=== PATIENT | female | born 1950 | race Caucasian/White ===

== ENCOUNTER → 2017-04-04 | Outpatient (CLI) | payer OTHER, BC | LOC: RAD 03:04 | DX: Z12.31 Encounter for screening mammogram for malignant neoplasm of breast (principal); Z13.820 Encounter for screening for osteoporosis; M85.89 Other specified disorders of bone density and structure, multiple sites; E28.39 Other primary ovarian failure ==

== ENCOUNTER 2018-02-28 09:54 | Emergency (ER) | payer OTHER, BC ==
[~2018-02-28] VITALS: Ht 162.6 cm; Wt 105.7 kg
--- NOTE | ~2018-02-28 | EKG ---
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1950 Requested By: Bella Figueroa Order Number: [id number] MD: Gera Villavicencio Measurements Intervals [place] Rate: 77 P: 40 [place]: 146 QRS: -24 QRSD: 98 T: -8 QT: 431 QTc: 488 Interpretive Statements Sinus rhythm Borderline left axis deviation Borderline T abnormalities, diffuse leads Borderline prolonged QT interval Compared to ECG 07/17/1999 06:17:16 No significant changes Electronically Signed On 03-01-2018 11:02:22 CDT by Gera Villavicencio [email or web address] <ELECTRONICALLY SIGNED> By: Gera Villavicencio MD 03/01/18 1102 1045 45 Gera Villavicencio MD /HAKEEM
[2018-02-28 10:30] LABS: URINE BILIRUBIN NEGATIVE (Negative); URINE BLOOD NEGATIVE (Negative); URINE CLARITY CLOUDY; URINE COLOR YELLOW; URINE GLUCOSE-RANDOM* NEGATIVE (Negative); URINE KETONES NEGATIVE (Negative); URINE NITRITE-REFLEX NEGATIVE (Negative); URINE PROTEIN (DIPSTICK) NEGATIVE (Negative); URINE UROBILINOGEN 0.2 E.U./dl (0.2-1.0)
[2018-02-28 10:31] LABS: URINE LEUKOCYTES-REFLEX TRACE (Negative)
[2018-02-28] MEDS ORDERED: SYNTHROID100 MC1 PO (10:35)
[2018-02-28] MEDS ORDERED: PAXIL10 MG PO (10:35)
[2018-02-28] MEDS ORDERED: LASIX 40 MG TAB40 M2 PO (10:36)
[2018-02-28] MEDS ORDERED: AMITRIPTYLINE H75 M2 PO (10:36)
[2018-02-28] MEDS ORDERED: LYRICA 75 MG CA75 MG PO (10:36)
[2018-02-28] MEDS ORDERED: QUINAPRIL 20 MG20 MG PO (10:36)
[2018-02-28] MEDS ORDERED: KLOR-CON 1010 MEQ PO (10:36)
[2018-02-28] MEDS ORDERED: ALLOPURINOL 10100 M1 PO (10:36)
[2018-02-28] MEDS ORDERED: FLEXERIL PO (10:37)
[2018-02-28] MEDS ORDERED: VICODIN 5-3001 EACH PO (10:37)
[2018-02-28] MEDS ORDERED: MULTIPLE VITAM1 EAC2 PO (10:38)
[2018-02-28] MEDS ORDERED: ASPIR 8181 M1 PO (10:38)
[2018-02-28] MEDS ORDERED: FISH OIL 1,001000 M2 PO (10:38)
[2018-02-28] MEDS ORDERED: XALATAN2.5 ML OPHTHALMIC (10:38)
[2018-02-28 10:40] LABS: ABSOLUTE NEUTROPHILS 2.5 thou/uL (1.4-8.2); BASOPHILS 0.5 % (0.0-2.0); EOSINOPHILS 8.9 % (0.0-3.0); HEMATOCRIT 43.7 % (37.0-47.0); HEMOGLOBIN 14.9 gm/dL (12.0-15.0); LYMPHOCYTES 41.5 % (24.0-44.0); MCH 32.4 pg (26.0-34.0); MCHC 34.2 g/dL (28.0-37.0); MCV 94.8 fL (80.0-100.0); MONOCYTES 7.9 % (1.0-8.0); PLATELET COUNT 147 thou/uL (150-400); POLYS 41.2 % (36.0-66.0); RBC 4.61 mil/uL (4.20-5.00); RDW 13.6 % (10.5-14.5); WBC 6.2 thou/uL (4.0-11.0)
[2018-02-28 10:54] LABS: ALBUMIN 3.5 g/dL (3.4-5.0); CALCIUM 9.5 mg/dL (8.5-10.1); CREATININE 1.1 mg/dL (0.6-1.0); TOTAL BILIRUBIN 0.5 mg/dL (<0.1-1.0); TOTAL PROTEIN 8.2 g/dL (6.4-8.2)
[2018-02-28 13:00] VITALS: BP 143/70
== END 2018-02-28 13:05 | disposition home or self-care (01) ==
LOC: ER 09:54
PROVIDERS: Student in an Organized Health Care Education/Training Program
DX: R53.1 Weakness (principal); E03.9 Hypothyroidism, unspecified; I11.0 Hypertensive heart disease with heart failure; I50.9 Heart failure, unspecified; M79.7 Fibromyalgia; Z88.0 Allergy status to penicillin; Z88.1 Allergy status to other antibiotic agents; Z88.5 Allergy status to narcotic agent; Z88.6 Allergy status to analgesic agent

== ENCOUNTER → 2018-06-02 | Outpatient (CLI) | payer OTHER, BC ==
[~2018-06-02] MED LIST: ALLOPURINOL 10100 M1 PO; AMITRIPTYLINE H75 M2 PO; ASPIR 8181 M1 PO; FISH OIL 1,001000 M2 PO; FLEXERIL PO; KLOR-CON 1010 MEQ PO; LASIX 40 MG TAB40 M2 PO; LYRICA 75 MG CA75 MG PO; MULTIPLE VITAM1 EAC2 PO; PAXIL10 MG PO; QUINAPRIL 20 MG20 MG PO; SYNTHROID100 MC1 PO; VICODIN 5-3001 EACH PO; XALATAN2.5 ML OPHTHALMIC
== END ==
LOC: RAD 02:03
DX: Z12.31 Encounter for screening mammogram for malignant neoplasm of breast (principal)

== ENCOUNTER 2019-03-19 17:11 | Emergency (ER) | payer OTHER, BC ==
[~2019-03-19] VITALS: Ht 162.6 cm; Wt 93.9 kg
[2019-03-19 18:15] LABS: ABSOLUTE NEUTROPHILS 2.2 thou/uL (1.4-8.2); BASOPHILS 0.3 % (0.0-2.0); EOSINOPHILS 8.1 % (0.0-3.0); HEMATOCRIT 42.2 % (37.0-47.0); HEMOGLOBIN 14.3 gm/dL (12.0-15.0); MCH 32.4 pg (26.0-34.0); MCHC 33.9 g/dL (28.0-37.0); MCV 95.6 fL (80.0-100.0); MONOCYTES 8.3 % (1.0-8.0); PLATELET COUNT 144 thou/uL (150-400); POLYS 36.3 % (36.0-66.0); RBC 4.41 mil/uL (4.20-5.00); RDW 13.2 % (10.5-14.5); WBC 6.2 thou/uL (4.0-11.0)
[2019-03-19 18:20] LABS: ANION GAP 3 mmol/L (7-16); BUN 19 mg/dL (7-18); CHLORIDE 101 mmol/L (98-107); CO2 35 mmol/L (21-32); CREATININE 0.9 mg/dL (0.6-1.0); GLUCOSE 128 mg/dL (74-106); POTASSIUM 4.3 mmol/L (3.5-5.1); SODIUM 139 mmol/L (136-145)
[2019-03-19 18:31] LABS: ALBUMIN 3.9 g/dL (3.4-5.0); MAGNESIUM 1.9 mg/dL (1.8-2.4); SGOT 61 U/L (15-37); SGPT 62 U/L (30-65); TOTAL BILIRUBIN 0.5 mg/dL (<0.1-1.0); TOTAL PROTEIN 7.7 g/dL (6.4-8.2); TROPONIN-I <0.06 ng/mL (<0.06)
[2019-03-19 19:21] LABS: URINE BILIRUBIN NEGATIVE (Negative); URINE BLOOD NEGATIVE (Negative); URINE CLARITY CLEAR; URINE COLOR YELLOW; URINE GLUCOSE-RANDOM* NEGATIVE (Negative); URINE KETONES NEGATIVE (Negative); URINE NITRITE-REFLEX NEGATIVE (Negative); URINE PROTEIN (DIPSTICK) NEGATIVE (Negative); URINE SPECIFIC GRAVITY <= 1.005 (1.005-1.035); URINE UROBILINOGEN 0.2 E.U./dl (0.2-1.0)
[2019-03-19 19:22] LABS: URINE LEUKOCYTES-REFLEX 1+ (Negative)
[2019-03-19 19:36] LABS: AMORPHOUS PHOSPHATES Moderate /LPF (None Seen); BACTERIA-REFLEX 1-9 Few /HPF (None Seen); CASTS None Seen /LPF (None Seen); SQUAMOUS 0-3 Few /LPF (0-3); URINE RBC None Seen /HPF (0-2); URINE WBC-REFLEX 0-5 Rare /HPF (0-5)
[2019-03-19 20:52] VITALS: BP 126/65
--- NOTE | 2019-03-20 09:19 | EKG ---
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 : 1950 Requested By: Vinnie Sullivan Order Number: [id number] MD: Brad Gil Measurements Intervals [place] Rate: 65 P: 52 [place]: 136 QRS: -25 QRSD: 95 T: -3 QT: 424 QTc: 441 Interpretive Statements Sinus rhythm Borderline left axis deviation Abnormal R-wave progression, late transition Borderline T abnormalities Compared to ECG 02/28/2018 10:46:09 No significant changes Electronically Signed On 03-20-2019 9:19:10 [employer] by Brad Gil [email or web address] <ELECTRONICALLY SIGNED> By: Brad Gil MD, [facility] 03/20/19 0919 1730 1730 Brad Gil MD, [facility] /EPI
== END 2019-03-19 20:53 | disposition home or self-care (01) ==
LOC: ER 17:11
PROVIDERS: Emergency Medicine
DX: I95.9 Hypotension, unspecified (principal); K74.60 Unspecified cirrhosis of liver; R10.11 Right upper quadrant pain; I10 Essential (primary) hypertension; E66.9 Obesity, unspecified; M79.7 Fibromyalgia; Z68.35 Body mass index [BMI] 35.0-35.9, adult; Z95.5 Presence of coronary angioplasty implant and graft; Z88.0 Allergy status to penicillin; Z88.1 Allergy status to other antibiotic agents; Z88.6 Allergy status to analgesic agent

== ENCOUNTER → 2019-10-14 | Outpatient (CLI) | payer OTHER, BC | LOC: SJCVC 09:34 | PROVIDERS: ATTEND Internal Medicine Cardiovascular Disease | DX: I95.9 Hypotension, unspecified (principal); E78.2 Mixed hyperlipidemia; E11.9 Type 2 diabetes mellitus without complications; K75.81 Nonalcoholic steatohepatitis (NASH); R53.83 Other fatigue ==

== ENCOUNTER → 2019-12-07 | Outpatient (CLI) | payer OTHER, BC | LOC: SJCVCIMAG 09:16 | PROVIDERS: ATTEND Internal Medicine Cardiovascular Disease | DX: I08.8 Other rheumatic multiple valve diseases (principal); R94.31 Abnormal electrocardiogram [ECG] [EKG]; I95.9 Hypotension, unspecified; E11.9 Type 2 diabetes mellitus without complications; I10 Essential (primary) hypertension; E78.00 Pure hypercholesterolemia, unspecified; K75.81 Nonalcoholic steatohepatitis (NASH); K74.60 Unspecified cirrhosis of liver; R53.83 Other fatigue; Z79.899 Other long term (current) drug therapy ==

== ENCOUNTER → 2020-10-21 | Outpatient (CLI) | payer OTHER, BC | LOC: BC 10:15 | PROVIDERS: ATTEND Neuromusculoskeletal Medicine & OMM | DX: Z12.31 Encounter for screening mammogram for malignant neoplasm of breast (principal); R92.1 Mammographic calcification found on diagnostic imaging of breast ==

== ENCOUNTER → 2020-12-21 | Outpatient (CLI) | payer OTHER, BC | LOC: SJCVCIMAG 10:35 | PROVIDERS: ATTEND Internal Medicine Cardiovascular Disease | DX: I65.23 Occlusion and stenosis of bilateral carotid arteries (principal); H54.7 Unspecified visual loss; I10 Essential (primary) hypertension; E78.00 Pure hypercholesterolemia, unspecified; E11.9 Type 2 diabetes mellitus without complications; K75.81 Nonalcoholic steatohepatitis (NASH); K74.60 Unspecified cirrhosis of liver; I95.9 Hypotension, unspecified; H54.62 Unqualified visual loss, left eye, normal vision right eye; Z79.899 Other long term (current) drug therapy; Z79.84 Long term (current) use of oral hypoglycemic drugs; Z88.0 Allergy status to penicillin; Z88.1 Allergy status to other antibiotic agents; Z88.8 Allergy status to other drugs, medicaments and biological substances; Z88.5 Allergy status to narcotic agent ==